=== PATIENT | female | born 2000 | race Two or more races ===

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

== ENCOUNTER 2020-05-17 14:10 | Observation (INO) | payer OTHER ==
[~2020-05-17] VITALS: Ht 167.6 cm; Wt 53.2 kg
[~2020-05-17 14:10] MED LIST changes: +CLOT15CR23 TP
[2020-05-17] MEDS ORDERED: IV NORMAL SALINE 1000ML BAG 1,000 ML IV ONE (14:30)
[2020-05-17 14:48] LABS: BASO % 0 % (0-3); EOS # 0.1 x10^3/uL (0.0-0.7); EOS % 1 % (0-3); HEMATOCRIT 32.9 % (36.0-47.0); HEMOGLOBIN 11.6 g/dL (12.0-15.5); LYMPH # 1.5 x10^3/uL (1.0-4.8); LYMPH % 17 % (24-48); MEAN CORPUSCULAR HEMOGLOBIN 31 pg (25-35); MEAN CORPUSCULAR HGB CONC 35 g/dL (31-37); MEAN CORPUSCULAR VOLUME 88 fL (79-100); MONO # 0.5 x10^3/uL (0.0-1.1); MONO % 5 % (0-9); NEUT % 77 % (31-73); PLATELET COUNT 278 x10^3/uL (140-400); RED BLOOD COUNT 3.76 x10^6/uL (3.50-5.40); RED CELL DISTRIBUTION WIDTH 12.4 % (11.5-14.5); WHITE BLOOD COUNT 9.1 x10^3/uL (4.0-11.0)
[2020-05-17 15:00] LABS: U PREG PATIENT POSITIVE (NEG)
[2020-05-17 15:10] LABS: BARBITURATES NEG (NEG); BENZODIAZEPINES NEG (NEG); CANNABINOIDS POS (NEG); COCAINE NEG (NEG); METHADONE NEG (NEG); OPIATES NEG (NEG); PHENCYCLIDINE NEG (NEG)
[2020-05-17 15:11] LABS: CALCIUM 8.9 mg/dL (8.5-10.1); CREATININE 0.6 mg/dL (0.6-1.0); GFR 127.5; POTASSIUM 3.7 mmol/L (3.5-5.1)
[2020-05-17 15:17] LABS: ALBUMIN 4.3 g/dL (3.4-5.0); ALBUMIN/GLOBULIN RATIO 1.3 (1.0-1.7); TOTAL BILIRUBIN 0.3 mg/dL (0.2-1.0); TOTAL PROTEIN 7.5 g/dL (6.4-8.2)
[2020-05-17 15:23] LABS: ACETAMIN 23.4 mcg/ml (10-30); ETHANOL < 10 mg/dL (0-10); SALIC < 2.8 mg/dL (2.8-20.0)
[2020-05-17 15:24] LABS: AMPHETAMINE/METHAMPHETAMINE NEG (NEG)
--- NOTE | 2020-05-17 16:14 | PHYS DOC ---
Past Medical History Past Medical History: Asthma, Depression, Other Additional Past Medical Histor: TACHYCARDIA Past Surgical History: Appendectomy Smoking Status: Current Some Day Smoker Alcohol Use: None Drug Use: None General Adult EDM: Chief Complaint: ABDOMINAL PAIN HPI: HPI: Patient is a 20 year old female who presented to ER today for evaluation of severe left lower pelvic pain with vaginal bleeding. Patient says she has been spotting for about 3 weeks, she passing blood clots today with severe pelvic pain so she came here for evaluation. Patient has been 2 times in the past with 2 normal children. Patient is not sure if she is today. Joaquin carpenter denies any cough or fever. Review of Systems: Review of Systems: Constitutional: Denies fever or chills. [] Eyes: Denies change in visual acuity. [] HENT: Denies nasal congestion or sore throat. [] Respiratory: Denies cough or shortness of breath. [] Cardiovascular: Denies chest pain or edema. [] GI: Positive for left lower abdominal pain : Positive for left side pelvic pain with vaginal bleeding Musculoskeletal: Denies back pain or joint pain. [] Integument: Denies rash. [] Neurologic: Denies headache, focal weakness or sensory changes. [] Endocrine: Denies polyuria or polydipsia. [] Lymphatic: Denies swollen glands. [] Psychiatric: Denies depression or anxiety. [] Heart Score: Risk Factors: Risk Factors: DM, Current or recent (<one month) smoker, HTN, HLP, family history of CAD, obesity. Risk Scores: Score 0 - 3: 2.5% MACE over next 6 weeks - Discharge Home Score 4 - 6: 20.3% MACE over next 6 weeks - Admit for Clinical Observation Score 7 - 10: 72.7% MACE over next 6 weeks - Early Invasive Strategies Current Medications: Current Medications Medications (Trade) Dose Ordered Sig/Tamie Start Time Stop Time Status Last Admin Dose Admin Sodium Chloride 1,000 ml @ 1,000 mls/hr 1X ONCE 05/17/20 14:30 05/17/20 15:29 DC 05/17/20 15:09 1,000 MLS/HR Allergies: Allergies: Allergies Coded Allergies Type Severity Reaction Last Updated Verified amoxicillin Allergy Intermediate hives 05/17/20 No Physical Exam: PE: Constitutional: Well developed, well nourished, no acute distress, non-toxic appearance. [] HENT: Normocephalic, atraumatic, bilateral external ears normal, oropharynx moist, no oral exudates, nose normal. [] Eyes: PERRLA, EOMI, conjunctiva normal, no discharge. [] Neck: Normal range of motion, no tenderness, supple, no stridor. [] Cardiovascular:Heart rate regular rhythm, no murmur [] Lungs & Thorax: Bilateral breath sounds clear to auscultation [] Abdomen: Bowel sounds normal, soft, LEFT SIDE LOWER ABDOMINAL tenderness TO PALPATION, no masses, no pulsatile masses. PELVIC EXAM: SEVERE LEFT SIDE ADNEXA TENDERNESS TO PALPATION, SMALL AMOUNT OF BLOOD IN VAGINAL VAULT...CERVIX IS CLOSED. Skin: Warm, dry, no erythema, no rash. [] Back: No tenderness, no CVA tenderness. [] Extremities: No tenderness, no cyanosis, no clubbing, ROM intact, no edema. [] Neurologic: Alert and oriented X 3, normal motor function, normal sensory function, no focal deficits noted. [] Psychologic: Affect normal, judgement normal, mood normal. [] Current Patient Data: Labs: Laboratory Tests Test 05/17/20 14:41 05/17/20 14:50 White Blood Count 9.1 x10^3/uL (4.0-11.0) Red Blood Count 3.76 x10^6/uL (3.50-5.40) Hemoglobin 11.6 g/dL (12.0-15.5) L Hematocrit 32.9 % (36.0-47.0) L Mean Corpuscular Volume 88 fL (79-100) Mean Corpuscular Hemoglobin 31 pg (25-35) Mean Corpuscular Hemoglobin Concent 35 g/dL (31-37) Red Cell Distribution Width 12.4 % (11.5-14.5) Platelet Count 278 x10^3/uL (140-400) Neutrophils (%) (Auto) 77 % (31-73) H Lymphocytes (%) (Auto) 17 % (24-48) L Monocytes (%) (Auto) 5 % (0-9) Eosinophils (%) (Auto) 1 % (0-3) Basophils (%) (Auto) 0 % (0-3) Neutrophils # (Auto) 7.0 x10^3/uL (1.8-7.7) Lymphocytes # (Auto) 1.5 x10^3/uL (1.0-4.8) Monocytes # (Auto) 0.5 x10^3/uL (0.0-1.1) Eosinophils # (Auto) 0.1 x10^3/uL (0.0-0.7) Basophils # (Auto) 0.0 x10^3/uL (0.0-0.2) Sodium Level 137 mmol/L (136-145) Potassium Level 3.7 mmol/L (3.5-5.1) Chloride Level 103 mmol/L (98-107) Carbon Dioxide Level 26 mmol/L (21-32) Anion Gap 8 (6-14) Blood Urea Nitrogen 8 mg/dL (7-20) Creatinine 0.6 mg/dL (0.6-1.0) Estimated GFR (Cockcroft-Gault) 127.5 BUN/Creatinine Ratio 13 (6-20) Glucose Level 108 mg/dL (70-99) H Calcium Level 8.9 mg/dL (8.5-10.1) Total Bilirubin 0.3 mg/dL (0.2-1.0) Aspartate Amino Transferase (AST) 22 U/L (15-37) Alanine Aminotransferase (ALT) 17 U/L (14-59) Alkaline Phosphatase 81 U/L (46-116) Total Protein 7.5 g/dL (6.4-8.2) Albumin 4.3 g/dL (3.4-5.0) Albumin/Globulin Ratio 1.3 (1.0-1.7) Salicylates Level < 2.8 mg/dL (2.8-20.0) L Salicylate Last Dose Date Unknown Salicylate Last Dose Time Unknown Acetaminophen Level 23.4 mcg/ml (10-30) Acetaminophen Last Dose Date Unknown Acetaminophen Last Dose Time Unknown Ethyl Alcohol Level < 10 mg/dL (0-10) Urine Test Positive (NEG) Urine Opiates Screen Neg (NEG) Urine Methadone Screen Neg (NEG) Urine Barbiturates Neg (NEG) Urine Phencyclidine Screen Neg (NEG) Urine Amphetamine/Methamphetamine Neg (NEG) Urine Benzodiazepines Screen Neg (NEG) Urine Cocaine Screen Neg (NEG) Urine Cannabinoids Screen Pos (NEG) Urine Ethyl Alcohol Neg (NEG) Laboratory Tests 05/17/20 14:41 Laboratory Tests 05/17/20 14:41 Vital Signs: Vital Signs Date Time Temp Pulse Resp B/P (MAP) Pulse Ox O2 Delivery O2 Flow Rate FiO2 05/17/20 14:10 98.5 71 20 137/63 (87) 99 Room Air 98.5 EKG: EKG: [] Radiology/Procedures: Radiology/Procedures: [][facility] [address] [place] [address] IMAGING REPORT Signed PATIENT: MARTHA GUERRA ACCOUNT: [id number] : 2000 LOCATION: ER AGE: 20 SEX: F EXAM STATUS: REG ER ORD. PHYSICIAN: ALEJANDRO AGRAWAL DO REASON: VAGINAL BLEEDING, HCG 1247, PELVIC PAIN PROCEDURE: OB <14 WKS W/TV Obstetric ultrasound less than 14 weeks HISTORY: female with quantitative hCG 1247, vaginal bleeding and pelvic pain. FINDINGS: Transabdominal imaging demonstrates anteverted uterus measuring 9.8 x 4.0 x 4.5 cm. No intrauterine gestational sac evident. Endometrium thickness 0.6 cm. At the left adnexa there is a 10.4 x 6.5 x 8.3 cm heterogeneous echogenic mass with some peripheral areas of blood flow although most of it internally is avascular. Right ovary not visualized. Transvaginal imaging demonstrates anteverted uterus. There is a moderate volume of hypoechoic pelvic free fluid surrounding the uterus and adnexa. No intrauterine gestational sac. Endometrium thickness 0.6 cm. Right ovary measures 1.7 x 3.5 x 1.8 cm no evidence of a right adnexal mass, there is intact right ovarian blood flow. There is no normal left ovary, left adnexal echogenic nonshadowing relatively avascular mass again demonstrated there are some areas of blood flow about its periphery anteriorly. While some of this echogenicity could be surrounding bowel loops most of it does not appear to be related to bowel. IMPRESSION: No normal intrauterine evident. The low hCG level of less than 2000 mIU/mL could still indicate the presence of a sonographically occult intrauterine . However there is a 10 cm complex left adnexal mass with no normal left ovary evident, and a moderate volume of hypoechoic complex pelvic free fluid, which raises suspicion of a ruptured left adnexal ectopic with adnexal hematoma and hemoperitoneum in the pelvis. A malignant adnexal mass is not excluded. FOR INTERNAL CODING PURPOSES Critical result: Findings discussed with ALEJANDRO AGRAWAL at 05/17/2020 5:16 PM. RESULT CODE: (C) Course & Med Decision Making: Course & Med Decision Making Pertinent Labs and Imaging studies reviewed. (See chart for details) Patient is a 20-year-old female who presented to ER with pelvic pain and vaginal bleeding. Patient was found to have rupture of ectopic , discussed with HEAT TREAT INSPECTOR doctor on-call Dr. Talon Gomez, will take patient to the OR. Len Disclaimer: Len Disclaimer: This electronic medical record was generated, in whole or in part, using a voice recognition dictation system. Departure Departure Impression: Primary Impression: Ruptured ectopic Additional Impression: Hemoperitoneum due to rupture of left tubal ectopic Disposition: ADMITTED INPATIENT Admitting Physician: [facility] (DR. GOMEZ) Condition: STABLE Referrals: NO PCP (PCP) Justicifation of Admission Dx: Justifications for Admission: Justification of Admission Dx: Yes (ECTOPIC ) ALEJANDRO AGRAWAL DO May 17, 2020 16:14
[2020-05-17] MEDS ORDERED: fentaNYL PF VIAL 100 MCG/2 ML VIAL IVP ONE ×2 (16:15→17:30)
--- NOTE | 2020-05-17 17:21 | RAD ---
Obstetric ultrasound less than 14 weeks HISTORY: female with quantitative hCG 1247, vaginal bleeding and pelvic pain. FINDINGS: Transabdominal imaging demonstrates anteverted uterus measuring 9.8 x 4.0 x 4.5 cm. No intrauterine gestational sac evident. Endometrium thickness 0.6 cm. At the left adnexa there is a 10.4 x 6.5 x 8.3 cm heterogeneous echogenic mass with some peripheral areas of blood flow although most of it internally is avascular. Right ovary not visualized. Transvaginal imaging demonstrates anteverted uterus. There is a moderate volume of hypoechoic pelvic free fluid surrounding the uterus and adnexa. No intrauterine gestational sac. Endometrium thickness 0.6 cm. Right ovary measures 1.7 x 3.5 x 1.8 cm no evidence of a right adnexal mass, there is intact right ovarian blood flow. There is no normal left ovary, left adnexal echogenic nonshadowing relatively avascular mass again demonstrated there are some areas of blood flow about its periphery anteriorly. While some of this echogenicity could be surrounding bowel loops most of it does not appear to be related to bowel. IMPRESSION: No normal intrauterine evident. The low hCG level of less than 2000 mIU/mL could still indicate the presence of a sonographically occult intrauterine . However there is a 10 cm complex left adnexal mass with no normal left ovary evident, and a moderate volume of hypoechoic complex pelvic free fluid, which raises suspicion of a ruptured left adnexal ectopic with adnexal hematoma and hemoperitoneum in the pelvis. A malignant adnexal mass is not excluded. FOR INTERNAL CODING PURPOSES Critical result: Findings discussed with ALEJANDRO AGRAWAL at 05/17/2020 5:16 PM. RESULT CODE: (C) Electronically signed by: Constantino Wild MD (05/17/2020 5:18 PM) [id number]
[2020-05-17] MEDS ORDERED: ROCURONIUM 50 MG/5 ML VIAL. ONE (18:15)
[2020-05-17] MEDS ORDERED: SUCCINYLCHOLINE 200 MG/10 ML VIAL. ONE (18:15)
[2020-05-17] MEDS ORDERED: fentaNYL PF VIAL 100 MCG/2 ML VIAL ONE ×2 (18:23→20:06)
[2020-05-17] MEDS ORDERED: MIDAZOLAM HCL/PF 2 MG/2 ML VIAL. ONE (18:24)
[2020-05-17] MEDS ORDERED: PROPOFOL 10 MG/ML (20ML) VIAL. IV ONE (18:24)
[2020-05-17] MEDS ORDERED: ePHEDrine PF IN SALINE 50 MG/10 ML SYRINGE. IV ONE (18:24)
[2020-05-17] MEDS ORDERED: LIDOCAINE 2% PF 5 ML VIAL. ONE (18:24)
[2020-05-17] MEDS ORDERED: ONDANSETRON PF 4 MG/2 ML VIAL. ONE (18:24)
[2020-05-17] MEDS ORDERED: DEXAMETHASONE SOD PHOS 4 MG/ML VIAL ONE (18:24)
[2020-05-17] MEDS ORDERED: NEOSTIGMINE METHYLSULFATE 5 MG/5 ML SYRINGE. ONE (18:25)
[2020-05-17] MEDS ORDERED: GLYCOPYRROLATE 1 MG/5 ML VIAL. ONE (18:25)
[2020-05-17] MEDS ORDERED: SURGICEL HEMOSTAT 4X8 EACH. ONE (18:34)
[2020-05-17] MEDS ORDERED: BUPIVACAINE-EPI 0.5%-1:200000 MPF 30 ML VIAL. ONE (18:34)
[2020-05-17] MEDS ORDERED: CLINDAMYCIN 900MG PREMIX 50 ML IV ONE (18:35)
[2020-05-17] MEDS ORDERED: IV RINGERS,LACTATED 1000ML 1,000 ML IV SCH (19:22)
[2020-05-17] MEDS ORDERED: SEVOFLURANE 31 TO 60 MINUTES. IH ONE (19:24)
[2020-05-17] MEDS ORDERED: MORPHINE SULFATE 2 MG/ML VIAL. IV PRN (19:30)
[2020-05-17] MEDS ORDERED: LIDOCAINE 1% PF 2 ML VIAL. ID PRN (19:30)
[2020-05-17] MEDS ORDERED: HYDROmorphone 2 MG/ML VIAL IV PRN (19:30)
[2020-05-17] MEDS ORDERED: PROCHLORPERAZINE 10 MG/2 ML VIAL. IV PRN ×2 (19:30→20:00)
[2020-05-17] MEDS ORDERED: fentaNYL PF VIAL 100 MCG/2 ML VIAL IV PRN (19:30)
[2020-05-17] MEDS ORDERED: ONDANSETRON PF 4 MG/2 ML VIAL. IV PRN ×2 (19:30→20:00)
[2020-05-17] MEDS ORDERED: KETOROLAC 30 MG/ML VIAL. ONE (19:44)
--- NOTE | 2020-05-17 19:53 | PDOC ---
BRIEF OPERATIVE NOTE Date: May 17, 2020 Pre-Op Diagnosis Ruptured Ectopic , Left Post-Op Diagnosis SAme Procedure Performed [facility] Left Salpingectomy Surgeon Dr. Gomez Anesthesia Type: General Blood Loss 1200 ml Specimens Obtained Left fallopian tube with ectopic Findings ruptured Left ectopic , 1200 ml blood clot, nml Right fallopian tube and nml ovaries teri Complications none Operative Note see dictation JANEL GOMEZ Jr, MD May 17, 2020 19:53
[2020-05-17] MEDS ORDERED: diphenhydrAMINE HCL 25 MG CAPSULE PO PRN (20:00)
[2020-05-17] MEDS ORDERED: CALCIUM CARBONATE 500 MG TAB.CHEW PO PRN (20:00)
[2020-05-17] MEDS ORDERED: diphenhydrAMINE 50 MG/ML VIAL IV PRN (20:00)
[2020-05-17] MEDS ORDERED: DEXTROSE 50% 25 GM / 50ML DISP.SYRIN. IV PRN (20:00)
[2020-05-17] MEDS ORDERED: SIMETHICONE 80 MG TAB.CHEW PO PRN (20:00)
[2020-05-17] MEDS ORDERED: ZOLPIDEM 5 MG TABLET. PO PRN (20:00)
[2020-05-17] MEDS ORDERED: 0.9 % SODIUM CHLORIDE 10 ML DISP.SYRIN. IV PRN (20:00)
[2020-05-17] MEDS: fentaNYL PF VIAL 100 MCG/2 ML VIAL IV PRN ×3 (20:08→20:40)
--- NOTE | 2020-05-17 20:37 | OP ---
DATE OF SURGERY: 05/17/2020 PREOPERATIVE DIAGNOSIS: Ruptured ectopic in the left. POSTOPERATIVE DIAGNOSIS: Ruptured ectopic in the left. PROCEDURE: Laparoscopic left salpingectomy. SURGEON: Janel Gomez MD ANESTHESIA: GETA. ESTIMATED BLOOD LOSS: 1200 mL. COMPLICATIONS: None. FINDINGS: Ruptured left ectopic , 1200 mL of blood clot, normal right fallopian tube and normal ovaries bilaterally. SUMMARY: A 20-year-old 3, para 2 at about 6-7 weeks' gestation by LMP, presented with severe abdominal pain and vaginal bleeding. The patient was found to be with a ruptured ectopic . She was counseled on the risks, benefits and expectations of laparoscopic salpingectomy with the possibility of oophorectomy, left side and voiced clear understanding to proceed. DESCRIPTION OF PROCEDURE: The patient was taken to surgery suite and placed in dorsal lithotomy position. She was prepped with Betadine solution for vaginal prep and ChloraPrep for abdominal prep. After adequate anesthesia, small transverse skin incision was made just below the umbilicus with a scalpel. The Veress needle was then placed through the infraumbilical incision site. The abdomen was allowed to insufflate up to 1-1/2 liters CO2 gas. The Veress needle was then removed, 5 mm trocar was placed, 5 mm scope was placed. There was a large amount of blood clot and blood in the abdomen. Two incisions made in left lower quadrant, in which a 5 mm trocar and a 10 mm trocar were placed. With aid of suction irrigation, the blood clot was removed, which was about 1200 mL. The right fallopian tube and ovary appeared normal. The left fallopian tube containing the ectopic that was ruptured, left ovary appeared normal. With the aid of the EnSeal device and Tosha retractor, left salpingectomy was performed. The pedicle was hemostatic. The left fallopian tube containing the ectopic was removed with the aid of Endobag. The remaining pelvic cul-de-sac was irrigated and suctioned large amount of blood as well as much as possible. Small amount of normal saline was left in posterior cul-de-sac. The trocars were then removed under direct visualization. The abdomen was allowed to deflate as much as possible along with mechanical manipulation. The 10 mm trocar site was repaired with 2-0 Vicryl at the fascial layer. The 3 skin incisions were repaired at the skin layer using 4-0 Vicryl suture in a subcuticular manner. A 0.25% Marcaine with epinephrine was injected at each incision site. The patient tolerated the procedure well and was taken to recovery room in stable condition. Sponge and needle count correct x 3. JANEL GOMEZ MD DR: AKI/vee JOB#: [id number] / [id number]
[2020-05-17 21:00] VITALS: BP 108/64
[2020-05-17 22:00] VITALS: BP 105/63
[2020-05-17] MEDS: KETOROLAC 30 MG/ML VIAL. IV PRN (22:20)
[2020-05-17] MEDS: GABAPENTIN 300 MG CAPSULE. PO SCH (22:20)
[2020-05-18 02:00] VITALS: BP 95/55
[2020-05-18] MEDS: GABAPENTIN 300 MG CAPSULE. PO SCH ×2 (06:30→16:18)
[2020-05-18] MEDS: oxyCODONE/APAP 5/325 1 TAB TABLET PO PRN ×2 (06:30→16:18)
[2020-05-18 06:38] VITALS: BP 92/54
[2020-05-18 07:31] LABS: BASO % 0 % (0-3); EOS # 0.2 x10^3/uL (0.0-0.7); EOS % 1 % (0-3); HEMATOCRIT 23.8 % (36.0-47.0); HEMOGLOBIN 8.3 g/dL (12.0-15.5); LYMPH # 3.2 x10^3/uL (1.0-4.8); LYMPH % 26 % (24-48); MEAN CORPUSCULAR HEMOGLOBIN 31 pg (25-35); MEAN CORPUSCULAR HGB CONC 35 g/dL (31-37); MEAN CORPUSCULAR VOLUME 89 fL (79-100); MONO # 0.7 x10^3/uL (0.0-1.1); MONO % 6 % (0-9); NEUT # 8.2 x10^3/uL (1.8-7.7); NEUT % 66 % (31-73); PLATELET COUNT 235 x10^3/uL (140-400); RED BLOOD COUNT 2.69 x10^6/uL (3.50-5.40); RED CELL DISTRIBUTION WIDTH 12.6 % (11.5-14.5); WHITE BLOOD COUNT 12.3 x10^3/uL (4.0-11.0)
[2020-05-18] MEDS ORDERED: FLU VACC QS 2020-21(6MOS+)/PF 0.5 ML SYRINGE. VAX IM ONE (10:00)
[2020-05-18] MEDS: KETOROLAC 30 MG/ML VIAL. IV PRN (11:00)
[2020-05-18 11:20] VITALS: BP 94/52
--- NOTE | 2020-05-18 11:35 | PDOC ---
SURGICAL PROGRESS NOTE DATE: 05/18/20 TIME: 11:34 Subjective Pt. feeling well. Pain controlled. Vital Signs Vital Signs Date Time Temp Pulse Resp B/P (MAP) Pulse Ox O2 Delivery O2 Flow Rate FiO2 05/18/20 06:38 98.4 87 14 92/54 (67) 98 Room Air 98.4 05/17/20 20:28 10.0 I&O Intake and Output 05/18/20 07:00 Intake Total 2650 ml Output Total 1200 ml Balance 1450 ml Intake Oral 100 ml IV Total 2550 ml Output Estimated Blood Loss 1200 ml # Voids 1 PATIENT HAS A HOLLAND: No General: Alert, Oriented X3, Cooperative HEENT: Atraumatic Lungs: Clear to auscultation Heart: Regular rate Abdomen: Normal bowel sounds, No masses Extremities: No clubbing Psych/Mental Status: Mental status NL Labs Laboratory Tests Test 05/17/20 14:41 05/17/20 14:50 05/17/20 17:27 05/18/20 06:50 White Blood Count 9.1 x10^3/uL (4.0-11.0) 12.3 x10^3/uL (4.0-11.0) Red Blood Count 3.76 x10^6/uL (3.50-5.40) 2.69 x10^6/uL (3.50-5.40) Hemoglobin 11.6 g/dL (12.0-15.5) 8.3 g/dL (12.0-15.5) Hematocrit 32.9 % (36.0-47.0) 23.8 % (36.0-47.0) Mean Corpuscular Volume 88 fL (79-100) 89 fL (79-100) Mean Corpuscular Hemoglobin 31 pg (25-35) 31 pg (25-35) Mean Corpuscular Hemoglobin Concent 35 g/dL (31-37) 35 g/dL (31-37) Red Cell Distribution Width 12.4 % (11.5-14.5) 12.6 % (11.5-14.5) Platelet Count 278 x10^3/uL (140-400) 235 x10^3/uL (140-400) Neutrophils (%) (Auto) 77 % (31-73) 66 % (31-73) Lymphocytes (%) (Auto) 17 % (24-48) 26 % (24-48) Monocytes (%) (Auto) 5 % (0-9) 6 % (0-9) Eosinophils (%) (Auto) 1 % (0-3) 1 % (0-3) Basophils (%) (Auto) 0 % (0-3) 0 % (0-3) Neutrophils # (Auto) 7.0 x10^3/uL (1.8-7.7) 8.2 x10^3/uL (1.8-7.7) Lymphocytes # (Auto) 1.5 x10^3/uL (1.0-4.8) 3.2 x10^3/uL (1.0-4.8) Monocytes # (Auto) 0.5 x10^3/uL (0.0-1.1) 0.7 x10^3/uL (0.0-1.1) Eosinophils # (Auto) 0.1 x10^3/uL (0.0-0.7) 0.2 x10^3/uL (0.0-0.7) Basophils # (Auto) 0.0 x10^3/uL (0.0-0.2) 0.0 x10^3/uL (0.0-0.2) Maternal Serum HCG Beta Subunit 1247 mIU/mL (0-5) Sodium Level 137 mmol/L (136-145) Potassium Level 3.7 mmol/L (3.5-5.1) Chloride Level 103 mmol/L (98-107) Carbon Dioxide Level 26 mmol/L (21-32) Anion Gap 8 (6-14) Blood Urea Nitrogen 8 mg/dL (7-20) Creatinine 0.6 mg/dL (0.6-1.0) Estimated GFR (Cockcroft-Gault) 127.5 BUN/Creatinine Ratio 13 (6-20) Glucose Level 108 mg/dL (70-99) Calcium Level 8.9 mg/dL (8.5-10.1) Total Bilirubin 0.3 mg/dL (0.2-1.0) Aspartate Amino Transf (AST/SGOT) 22 U/L (15-37) Alanine Aminotransferase (ALT/SGPT) 17 U/L (14-59) Alkaline Phosphatase 81 U/L (46-116) Total Protein 7.5 g/dL (6.4-8.2) Albumin 4.3 g/dL (3.4-5.0) Albumin/Globulin Ratio 1.3 (1.0-1.7) Salicylates Level < 2.8 mg/dL (2.8-20.0) Salicylate Last Dose Date Unknown Salicylate Last Dose Time Unknown Acetaminophen Level 23.4 mcg/ml (10-30) Acetaminophen Last Dose Date Unknown Acetaminophen Last Dose Time Unknown Ethyl Alcohol Level < 10 mg/dL (0-10) Urine Test Positive (NEG) Urine Opiates Screen Neg (NEG) Urine Methadone Screen Neg (NEG) Urine Barbiturates Neg (NEG) Urine Phencyclidine Screen Neg (NEG) Urine Amphetamine/Methamphetamine Neg (NEG) Urine Benzodiazepines Screen Neg (NEG) Urine Cocaine Screen Neg (NEG) Urine Cannabinoids Screen Pos (NEG) Urine Ethyl Alcohol Neg (NEG) SARS-CoV-2 Antigen (Rapid) Negative (NEGATIVE) Laboratory Tests Test 05/17/20 14:41 05/17/20 14:50 05/17/20 17:27 05/18/20 06:50 White Blood Count 9.1 x10^3/uL (4.0-11.0) 12.3 x10^3/uL (4.0-11.0) Red Blood Count 3.76 x10^6/uL (3.50-5.40) 2.69 x10^6/uL (3.50-5.40) Hemoglobin 11.6 g/dL (12.0-15.5) 8.3 g/dL (12.0-15.5) Hematocrit 32.9 % (36.0-47.0) 23.8 % (36.0-47.0) Mean Corpuscular Volume 88 fL (79-100) 89 fL (79-100) Mean Corpuscular Hemoglobin 31 pg (25-35) 31 pg (25-35) Mean Corpuscular Hemoglobin Concent 35 g/dL (31-37) 35 g/dL (31-37) Red Cell Distribution Width 12.4 % (11.5-14.5) 12.6 % (11.5-14.5) Platelet Count 278 x10^3/uL (140-400) 235 x10^3/uL (140-400) Neutrophils (%) (Auto) 77 % (31-73) 66 % (31-73) Lymphocytes (%) (Auto) 17 % (24-48) 26 % (24-48) Monocytes (%) (Auto) 5 % (0-9) 6 % (0-9) Eosinophils (%) (Auto) 1 % (0-3) 1 % (0-3) Basophils (%) (Auto) 0 % (0-3) 0 % (0-3) Neutrophils # (Auto) 7.0 x10^3/uL (1.8-7.7) 8.2 x10^3/uL (1.8-7.7) Lymphocytes # (Auto) 1.5 x10^3/uL (1.0-4.8) 3.2 x10^3/uL (1.0-4.8) Monocytes # (Auto) 0.5 x10^3/uL (0.0-1.1) 0.7 x10^3/uL (0.0-1.1) Eosinophils # (Auto) 0.1 x10^3/uL (0.0-0.7) 0.2 x10^3/uL (0.0-0.7) Basophils # (Auto) 0.0 x10^3/uL (0.0-0.2) 0.0 x10^3/uL (0.0-0.2) Maternal Serum HCG Beta Subunit 1247 mIU/mL (0-5) Sodium Level 137 mmol/L (136-145) Potassium Level 3.7 mmol/L (3.5-5.1) Chloride Level 103 mmol/L (98-107) Carbon Dioxide Level 26 mmol/L (21-32) Anion Gap 8 (6-14) Blood Urea Nitrogen 8 mg/dL (7-20) Creatinine 0.6 mg/dL (0.6-1.0) Estimated GFR (Cockcroft-Gault) 127.5 BUN/Creatinine Ratio 13 (6-20) Glucose Level 108 mg/dL (70-99) Calcium Level 8.9 mg/dL (8.5-10.1) Total Bilirubin 0.3 mg/dL (0.2-1.0) Aspartate Amino Transf (AST/SGOT) 22 U/L (15-37) Alanine Aminotransferase (ALT/SGPT) 17 U/L (14-59) Alkaline Phosphatase 81 U/L (46-116) Total Protein 7.5 g/dL (6.4-8.2) Albumin 4.3 g/dL (3.4-5.0) Albumin/Globulin Ratio 1.3 (1.0-1.7) Salicylates Level < 2.8 mg/dL (2.8-20.0) Salicylate Last Dose Date Unknown Salicylate Last Dose Time Unknown Acetaminophen Level 23.4 mcg/ml (10-30) Acetaminophen Last Dose Date Unknown Acetaminophen Last Dose Time Unknown Ethyl Alcohol Level < 10 mg/dL (0-10) Urine Test Positive (NEG) Urine Opiates Screen Neg (NEG) Urine Methadone Screen Neg (NEG) Urine Barbiturates Neg (NEG) Urine Phencyclidine Screen Neg (NEG) Urine Amphetamine/Methamphetamine Neg (NEG) Urine Benzodiazepines Screen Neg (NEG) Urine Cocaine Screen Neg (NEG) Urine Cannabinoids Screen Pos (NEG) Urine Ethyl Alcohol Neg (NEG) SARS-CoV-2 Antigen (Rapid) Negative (NEGATIVE) Problem List Problems Medical Problems: (1) Ectopic of left ovary Status: Acute (2) Hemoperitoneum due to rupture of left tubal ectopic Status: Acute (3) Ruptured ectopic Status: Acute Assessment/Plan A: POD#1 s/p LPSC Left Salpingectomy for ectopic P: D/c home. Justicifation of Admission Dx: Justifications for Admission: Justification of Admission Dx: Yes (ECTOPIC ) JANEL GUERRERO Jr, MD May 18, 2020 11:35
[2020-05-18] MEDS ORDERED: OXYC1TAB15 PO (11:38)
--- NOTE | 2020-05-18 11:38 | DISCH ---
DISCHARGE INSTRUCTIONS Condition on Discharge Condition on Discharge: Stable Activity After Discharge Activity Instructions for Disc: Activity as tolerated Lifting Instructions after Dis: No heavy lifting Driving Instructions after Dis: Do not drive today Diet after Discharge Diet after Discharge: Regular Contacting the DRJavier after DC Call your doctor for: Concerns you may have Follow-Up Follow up with: Dr. Gomez in 1 week JANEL GOMEZ Jr, MD May 18, 2020 11:38
[2020-05-18 15:00] VITALS: BP 98/56
--- NOTE | 2020-05-19 18:06 | PATHOLOGY ---
[facility] Accession Number: [id number] . 01 Material submitted: . fallopian tube - LEFT TUBE. Modifiers: left . 02 Diagnosis: Fallopian tube, left salpingectomy: - Ectopic tubal . - Hematosalpinx. ([employer]; 05/19/2020) [facility] 05/19/2020 1548 Local . 02 Electronically signed: . Pérez Jonas MD, Pathologist NPI- [id number] . 01 Gross description: . The specimen is received in formalin, labeled "ManuelShelia meraz", "left tube". Received is an elongated, extensively dilated fallopian tube measuring 8.2 cm in length and ranges in diameter from 0.7 cm to 2.5 cm. The distal portion is . A small area of rupture is noted at the fimbria site. The remainder of the serosal surface displays a smooth, dark dela cruz-dark pink appearance. Sectioning reveals a large amount of dark red blood coagulum within the dilated aspect. No tissues are identified. [employer] sections are submitted in cassettes A1 to A3.([facility]; 05/18/2020) [facility] 05/18/2020 1752 Local . 02 Pathologist provided ICD-10: O00.90, N83.6 . 02 CPT . 699030 Specimen Comment: A courtesy copy of this report has been sent to [phone] Specimen Comment: Report sent to Performed at: 01 [facility] [address] [id number] MD Kavin Joseph MD Phone: [phone] Performed at: 02 [facility] [address] [place], [place] [id number] MD Pérez Jonas MD Phone: [phone]
== END 2020-05-18 16:30 | disposition home or self-care (01) ==
LOC: ER 14:10 → INTOOBSV 19:00 → 3 NORTH 19:00
PROVIDERS: ADMIT Obstetrics & Gynecology; ATTEND Obstetrics & Gynecology
DX: O00.102 Left tubal pregnancy without intrauterine pregnancy (principal); O08.89 Other complications following an ectopic and molar pregnancy; O02.81 Inappropriate change in quantitative human chorionic gonadotropin (hCG) in early pregnancy; O99.331 Smoking (tobacco) complicating pregnancy, first trimester; K66.1 Hemoperitoneum; J45.909 Unspecified asthma, uncomplicated; Z90.49 Acquired absence of other specified parts of digestive tract; Z23 Encounter for immunization; Z3A.14 14 weeks gestation of pregnancy
CPT/HCPCS: 36415; 59151; 76801; 76817; 80053; 80307; 80329; 81025; 84702; 85025; 86850; 86900; 86901; 87426; 90471; 90686; 96361; 96374; 96375; 96376; 99285; A7015; G0378; G0480; J0330; J1100; J1885; J2250; J2405; J2704; J2710; J3010; J3490; J7030; J7120; U0003; G0379; A4461